=== PATIENT | male | born 1980 | race Caucasian/White ===

== ENCOUNTER 2018-04-04 23:45 | Emergency (ER) | payer OTHER ==
[~2018-04-04] VITALS: Ht 182.9 cm; Wt 81.6 kg
[2018-04-05] MEDS ORDERED: KETO10TA2 PO (08:24)
[2018-04-05] MEDS ORDERED: TAMS0.4C PO ×2 (08:24→08:25)
== END 2018-04-05 08:55 | disposition home or self-care (01) ==
LOC: ER 23:45
DX: N20.1 Calculus of ureter (principal); R10.32 Left lower quadrant pain